=== PATIENT | male | born 1980 | race Caucasian/White ===

== ENCOUNTER 2018-05-18 17:46 | Emergency (ER) | payer SELFPAY ==
[~2018-05-18] VITALS: Ht 182.9 cm; Wt 120.5 kg
[2018-05-18 18:08] VITALS: BP 140/110
[2018-05-18] MEDS ORDERED: IPRATROPIUM BROMIDE 0.5 MG/2.5 ML NEB SOLUTION NEB ONE (18:15)
[2018-05-18] MEDS ORDERED: ACETAMINOPHEN 500 MG TABLET PO ONE (18:15)
[2018-05-18] MEDS ORDERED: ALBUTEROL SULFATE 2.5 MG/0.5 ML NEB SOLUTION NEB ONE (18:15)
[2018-05-18] MEDS ORDERED: IBUPROFEN 800 MG TABLET PO ONE (18:15)
[2018-05-18 18:47] LABS: INFLUENZA TYPE A NEGATIVE FOR TYPE A (NEGATIVE); INFLUENZA TYPE B NEGATIVE FOR TYPE B (NEGATIVE)
== END 2018-05-18 19:35 | disposition left against medical advice (07) ==
LOC: EMS 17:48
DX: J11.1 Influenza due to unidentified influenza virus with other respiratory manifestations (principal); Z53.21 Procedure and treatment not carried out due to patient leaving prior to being seen by health care provider
CPT/HCPCS: 87804; 94640